=== PATIENT | female | born 1970 | race Caucasian/White ===

== ENCOUNTER 2018-09-22 13:24 | Emergency (ER) | payer OTHER ==
[2018-09-22] MEDS ORDERED: IBUPROFEN 800 MG TABLET. PO ONE (14:00)
[2018-09-22 14:06] LABS: BACTERIA,URINE MANY /HPF (0-FEW); BILIRUBIN,URINE NEG (NEG); CLARITY,URINE CLOUDY; COLOR,URINE YELLOW; GLUCOSE,URINE NEG (NEG); NITRITE,URINE POS (NEG); RBC,URINE 0 /HPF (0-2); SQUAMOUS EPITHELIAL CELL,UR MANY /LPF; UROBILINOGEN,URINE 0.2 mg/dL (0.2 mg/dL); WBC,URINE 20-40 /HPF (0-4)
[2018-09-22] MEDS ORDERED: cefTRIAXone IM 1 GM VIAL IM ONE (14:30)
[2018-09-22] MEDS ORDERED: PHEN100T82 PO (14:30)
[2018-09-22] MEDS ORDERED: NAPR-683 PO (14:30)
[2018-09-22] MEDS ORDERED: CEPH-264 PO (14:30)
--- NOTE | 2018-09-22 14:30 | PHYS DOC ---
Past History Past Medical History: Cancer Past Surgical History: Cancer Surgery, , Hysterectomy Smoking: Non-smoker Alcohol Use: None Drug Use: None Adult General Chief Complaint Chief Complaint: ABDOMINAL PAIN [facility] 48-year-old female patient complaining of urinary frequency and dysuria for one week and lower abdominal pain for the last few days that getting worse with urination as a crampy pain with radiation to her back. Patient rated her pain moderate and denies vomiting, diarrhea, fever and chills, vaginal bleeding or discharge. Patient states she had history of UTI with the same symptom and took [id number] medication without improvement of her condition. Review of Systems Review of Systems Constitutional: Denies fever or chills [] Eyes: Denies change in visual acuity, redness, or eye pain [] HENT: Denies nasal congestion or sore throat [] Respiratory: Denies cough or shortness of breath [] Cardiovascular: No additional information not addressed in HPI [] GI: Reports abdominal pain, denies nausea, vomiting, bloody stools or diarrhea [ ] : Reports dysuria and urinary frequency Musculoskeletal: Denies back pain or joint pain [] Integument: Denies rash or skin lesions [] Neurologic: Denies headache, focal weakness or sensory changes [] Endocrine: Denies polyuria or polydipsia [] All other systems were reviewed and found to be within normal limits, except as documented in this note. Allergies Allergies Allergies Coded Allergies Type Severity Reaction Last Updated Verified No Known Drug Allergies 09/22/18 No Physical Exam Physical Exam Constitutional: Well developed, well nourished, mild distress, non-toxic appearance. [] HENT: Normocephalic, atraumatic, oropharynx moist. Eyes: PERRLA, EOMI, conjunctiva normal, no discharge. [] Neck: Normal range of motion, no tenderness, supple, no stridor. [] Cardiovascular:Heart rate regular rhythm, no murmur [] Lungs & Thorax: Bilateral breath sounds clear to auscultation [] Abdomen: Bowel sounds normal, soft, no tenderness, no masses, no pulsatile masses. [] Skin: Warm, dry, no erythema, no rash. [] Back: No tenderness, no CVA tenderness. [] Extremities: No tenderness, no cyanosis, no clubbing, ROM intact, no edema. [] Neurologic: Alert and oriented X 3, normal motor function, normal sensory function, no focal deficits noted. [] Psychologic: Affect normal, judgement normal, mood normal. [] Current Patient Data Vital Signs Vital Signs Date Time Temp Pulse Resp B/P (MAP) Pulse Ox O2 Delivery O2 Flow Rate FiO2 09/22/18 13:41 98.1 75 18 97 Room Air EKG EKG [] Radiology/Procedures Radiology/Procedures [] Course & Med Decision Making Course & Med Decision Making Pertinent Labs reviewed. (See chart for details) Evaluation of patient in ER showed 48-year-old female patient with complaining of urinary frequency and dysuria for one week and lower abdominal pain for a few days. Patient had unremarkable physical exam. Labs showed 20-40 WBC and patient treated with Rocephin in ER and plan to give prescription for Keflex and Pyridium and Naprosyn. Dragon Disclaimer Dragon Disclaimer This electronic medical record was generated, in whole or in part, using a voice recognition dictation system. Departure Departure: Impression: Primary Impression: Urinary tract infection Disposition: 01 HOME, SELF-CARE (at 1427) Condition: IMPROVED Referrals: PCP,NO (PCP) Patient Instructions: Urinary Tract Infection Additional Instructions: Drink plenty of liquids Follow-up with your primary care physician in 3-5 days Return to ER if not getting better Scripts Phenazopyridine Hcl (PYRIDIUM) 100 Mg Tablet 100 MG PO BID for dysuria, #14 TAB Prov: JOSE RAUL JORGENSEN MD 09/22/18 Naproxen (NAPROSYN) 500 Mg Tablet 1 TAB PO BID for pain, #20 TAB Prov: JOSE RAUL JORGENSEN MD 09/22/18 Cephalexin (KEFLEX) 500 Mg Capsule 2 CAP PO Q12HR for infection, #28 CAP Prov: JOSE RAUL JORGENSEN MD 09/22/18 JOSE RAUL JORGENSEN MD Sep 22, 2018 14:30
[2018-09-22 14:45] VITALS: BP 128/75
== END 2018-09-22 14:50 | disposition home or self-care (01) ==
LOC: ER 13:24
DX: N39.0 Urinary tract infection, site not specified (principal); Z98.890 Other specified postprocedural states; Z90.710 Acquired absence of both cervix and uterus
CPT/HCPCS: 81001; 87086; 96372; 99284; J0696